=== PATIENT | female | born 1960 | race Hispanic/Latino ===

== ENCOUNTER 2016-03-30 08:39 | Emergency (ER) | payer OTHER ==
[~2016-03-30] VITALS: Ht 165.1 cm; Wt 72.7 kg
[2016-03-30 08:48] VITALS: BP 137/80; PULSE 82; RESP 18; O2SAT 99
[2016-03-30] MEDS ORDERED: LORazepam 1 mg Tablet PO ONE (09:25)
[2016-03-30 10:18] VITALS: BP 126/76; PULSE 78; RESP 15; O2SAT 98
--- NOTE | 2016-03-30 10:23 | ED.REPORT ---
HPI-General Illness Date of Service Mar 30, 2016 ED Provider: Clyde Jameson DO Ms. Pari Mcdaniels is a pleasant though anxious 55-year-old female who presents today secondary to labile blood sugars. Patient has a past medical history of diabetes type II (metformin 1 g twice a day, glyburide 25 mg twice a day and has been prescribed 20 units of Lantus though currently is only taking 12 units at bedtime), hypertension, hyperlipidemia. She has been seen at urgent care within the last week for same and her Lantus was reduced from 20-15 units at bedtime. Over the last 10 days she has been very anxious and has been experiencing a lot of stressors due to personal family issues and her home blood sugar values have given her concern. She states that in the mornings her blood sugars range between 50 and 85 and throughout the day can be as high as 200. Patient states last night her blood sugar was 160 at 2300 and she decided to not take her basal insulin. At 0400 today her blood sugar was 95 and she took 12 units of her Lantus, ate breakfast of fruit and yogurt then rechecked her blood sugar which was 100. This concerned her to the point where she decided to seek an appointment with her primary care provider Dr. Cooper today, however her office was closed as it is a holiday. Prior to ED presentation patient states she experienced some numbness and tingling in her hands bilaterally as well as some perioral numbness. She does endorse being anxious and having some hyperventilation prior to emergency department visit. At time of interview patient states symptoms had resolved almost entirely. Incidentally patient does endorse a 7 out of 10 headache, though does not complain of any neurological deficits. Of note she was seen yesterday in urgent care and diagnosed with a UTI and started on antibiotics. Nursing Notes Stated Complaint: BLOOD SUGAR ISSUES,RT SIDE FACE NUMBNESS Chief Complaint: General Complaint Nursing Notes Reviewed: Yes Allergies: Coded Allergies: No Known Allergies (Unverified , 01/14/16) General Time Seen by MD: 08:56 Chief Complaint Other (blood sugar concerns) Hx Obtained From: Patient Arrived By: Walk-in Sudden in Onset?: No Onset Occurred: More than a week ago... (2 weeks) Past Medical History Past Medical History Reports: Diabetes mellitus, Hypertension Smoking History Unknown if Ever Smoker Social History Other Social History: Good social support Ambulatory Status Independent Review of Systems ROS positive for epigastric pain secondary to reported heartburn. Headache occipital region 7 out of 10 not sudden in onset. Patient states this pain waxes and wanes, at time of interview headache mostly subsided. Patient endorses bilateral hand numbness and tingling and perioral numbness that had mostly resolved at time of interview. Full Review of Systems Constitutional: Denies: Chills, Fever Eyes: Denies: Blurred bilateral, Eye pain bilateral, Photophobia, Visual loss bilateral Ears / Nose / Throat: Denies: Ear drainage bilateral, Ear ringing bilateral, Hearing loss bilateral, Mouth pain, Nasal congestion, Nose bleeding, Sinus problem, Sore throat Respiratory: Denies: Shortness of breath, Wheezing Cardiovascular: Denies: Chest pain, Palpitations GI: Reports: Nausea, Denies: Abdominal pain, Constipation, Diarrhea, Vomiting Musculoskeletal: Denies: Back pain Skin: Denies Diaphoresis Neurologic: Reports: Headache, Numbness, Denies: Abnormal movement, Bladder dysfunction, Change LOC, Confusion, Dizziness, Lightheaded, Problem walking, Slurred speech, Spinning sensation, Unable to speak, Vision change, Weakness Psychiatric: Reports: Anxiety, Denies: Change mental status, Confusion, Delusional Physical Exam General: No acute distress, well-developed, well-nourished, appropriately interactive HEENT: Normocephalic, atraumatic. External ears without defect. Pupils equal, round, and reactive to light and accommodation. Anicteric sclerae, moist conjunctivae, and no lid lag. Oropharynx free of erythema and cobble stoning with moist mucosa. Neck: Supple with full range of motion. No jugular venous distension. Cardiovascular: Regular rate and rhythm with no murmurs, rubs, or gallops appreciated Pulmonary: Clear to auscultation bilaterally with no crackles, wheezes, or rhonchi. Normal respiratory effort with no use of accessory muscles. Abdomen: Bowel tones present. Soft, nontender, nondistended. Extremities: No clubbing, cyanosis, edema, or lymphadenopathy appreciated. Good CMS M extremities bilaterally. Cap refill less than 2 seconds. Skin: Normal temperature, turgor, and texture. Neurological: Cranial nerves 2 through 12 grossly intact. Neuro exam unremarkable. Normal muscle strength, tone, and bulk. Reflexes, coordination, and sensory function within normal limits. No known gait impairment. Psychiatric: Normal mood and affect. Alert and oriented to person, place, and time. Vital Signs Vital Signs Date Time Temp Pulse Resp B/P Pulse Ox O2 Delivery O2 Flow Rate FiO2 03/30/16 10:18 78 15 126/76 98 Room Air 03/30/16 08:48 36.0 82 18 137/80 99 Re-Eval/Medical Decision Med Decision/Clinical Course Patient's self-reported blood sugars over the last 10 days have concerned her as they have been low in the mornings normally between mid 50s and mid 80s, and will portably rises high as 160s to low 200s in the afternoon and evening. She is currently on metformin and glyburide as well as 20 units of Lantus daily at bedtime. After being seen in the urgent care last week her long-acting was decreased from 20-15 though she still reports low sugars in the a.m. Glucose measured in ED 121. Patient's reported 7 out of 10 occipital headache. This is not likely to be due to a intracranial hemorrhage, most likely secondary to combination of anxiety and hyperventilation and unlikely this was due to hypoglycemia as patient's blood sugar levels were within normal limits in ED. Throughout course of ED visit headache subsided. Patient did not endorse any neurological deficits and physical exam - looking specifically for signs or symptoms of CVA was negative. Patient did not endorse that this headache was any worse than previous headaches in the past and denied any visual changes, dizziness, vomiting or focal/systemic neurological deficits. Symptoms had mostly resolved after administration of Tylenol and benzodiazepine. Patient encouraged to follow-up with her primary care provider regarding today' s emergency room visit for continuing diabetic medication management, discharged to home in stable condition. Counseled Regarding: Diagnosis, Need for follow-up, When/why to return to ED Discharge & Departure Shift Change Sign-Out Response to Therapy: Improved Primary Impression: Anxiety Additional Impression: Normal blood sugar Disposition: Home Discharge Condition All VS Reviewed: Yes Condition: Improved Additional Instructions: While your blood sugar levels do fluctuate, fortunately the values you have reported to me are not too low low or high to be life-threatening. I strongly encourage you to follow up with your primary care provider for additional medication management regarding your blood sugar levels, perhaps adding a short acting insulin and decreasing your long-acting insulin even further. The numbness and tingling of both of your hands as well as around your mouth are most likely due to anxiety and hyperventilation, this is supported by these symptoms resolving while in the emergency department. The headache you experienced was most likely the result of the combination low blood sugars, hyperventilation as well as anxiety. I have given you an antianxiety medication in the ER today and I think you may benefit from a prescription from this medication from your primary care provider. Please discuss this with her further If you develop any return or worsening of these symptoms, your headache becomes worse, or you develop any weakness or difficulty concentrating visual changes please return to the emergency department for additional evaluation. Mientras que yonatan niveles de azcar en la dee fluctan, afortunadamente los valores que me habis denunciado no son demasiado baja o glenn a ser peligrosa para la robert. Animo a seguir con ortiz proveedor de atencin primaria para la administracin de medicacin adicional con respecto a yonatan niveles de azcar en la dee, mohinder vez aadiendo shannan insulina de accin corta y disminuyendo an ms ortiz insulina de accin prolongada. El entumecimiento y hormigueo de las kasie y la boca son muy probablemente debido a la ansiedad y la hiperventilacin, esto es apoyado por estos sntomas resolver mientras que en el Departamento de la emergencia. El dolor de esteban que experiment fue probablemente el resultado de la combinacin baja azcar en la dee, hiperventilacin y ansiedad. Le he dado un medicamento ansiolticos en la don de emergencia hoy y creo que usted se puede beneficiar de la prescripcin de js medicamento de ortiz proveedor de atencin primaria. Por favor hable ms con francoise Si desarrollas cualquier retorno o empeoramiento de estos sntomas, ortiz dolor de esteban llega a ser peor, o desarrollas cualquier debilidad o dificultad para concentrarse visual cambios devolucin al servicio de urgencias para la evaluaci n adicional Traduccin por google translate Referrals: Neda Youngblood (PCP) Attending Statement The patient was seen and examined together with Dr. Cook on 03/30/16 and I have added additional information to the note above. copies to: Neda Youngblood GILES A DO Mar 30, 2016 09:23 O'Clyde Castrejon DO Mar 30, 2016 10:23
== END 2016-03-30 10:12 | disposition home or self-care (01) ==
LOC: SED 08:39
DX: F41.9 Anxiety disorder, unspecified (principal); E11.9 Type 2 diabetes mellitus without complications; I10 Essential (primary) hypertension; Z87.891 Personal history of nicotine dependence; Z79.4 Long term (current) use of insulin